=== PATIENT | male | born 1975 | race Caucasian/White ===

== ENCOUNTER 2021-04-22 02:52 | Emergency (ER) | payer SELFPAY ==
[2021-04-22] MEDS ORDERED: LEVETIRACETAM 500 MG/5 ML VIAL IV ONE (03:52)
[2021-04-22] MEDS ORDERED: NA CHLORIDE 0.9% 500 ML ONE (03:52)
[2021-04-22] MEDS ORDERED: ONDANSETRON 4 MG/2 ML VIAL ONE (03:52)
[2021-04-22] MEDS ORDERED: NA CHLORIDE 0.9% 100 ML ONE (03:52)
[2021-04-22] MEDS ORDERED: FENTANYL CITR 100 MCG/2 ML ONE (04:10)
[2021-04-22] MEDS ORDERED: dexAMETHasone 10 MG/ML VIAL ONE (04:44)
[2021-04-22] MEDS ORDERED: MORPHINE 2 MG/ML SYR ONE (04:44)
[2021-04-22 06:27] LABS: Albumin 4.3 g/dL (3.4-5.0); Bilirubin Total 0.9 mg/dL (0.2-1.0); Potassium 3.8 mmol/L (3.5-5.1); Protein, Total 9.5 g/dL (6.4-8.2); Protime INR 1.06
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
[2021-04-22 06:39] VITALS: BP 154/97; TEMP 97.8; O2SAT 99
[2021-04-22 06:47] LABS: Basophils % 0.4 % (0-1.3); Hematocrit 48.9 % (39.6-49.0); Lymphocytes % 14.5 % (15.3-44.8); MPV 9.2 fL (7.6-11.3); RBC Red Blood Cell Count 5.17 M/uL (4.33-5.43)
--- NOTE | 2021-05-01 09:52 | RAD REPORT ---
EXAM: CT Head COMPARISON: CT head April 20 report only INDICATION: For headache pain TECHNIQUE: Axial images were obtained from skull base to vertex without intravenous contrast. Images viewed on bone and brain windows. Multiplanar reformats were performed. Automated exposure control was utilized on this examination as a dose lowering technique. FINDINGS: Brain parenchyma, ventricles, dura, meninges, and extra-axial spaces: Cortical contusions are present in the lateral inferior right frontal lobe and lateral right temporal lobe. A small amount of subarachnoid hemorrhage is present at these locations. The right hemispheric subdural hematoma measures up to 2 mm in thickness. Vascular structures: No hyperdense arteries or veins. Calvarium, mastoid air cells, paranasal sinuses and orbits: Stable nondisplaced left occipital skull fracture. The mastoid air cells are clear. Visualized paranasal sinuses are unremarkable. Orbital structures are unremarkable. EXAM: CT Cervical Spine COMPARISON: None. INDICATION: For headache pain TECHNIQUE: Axial CT images were obtained through the entire cervical spine without contrast. Sagittal and coronal reconstructions are provided. Automated exposure control was utilized on this examination as a dose lowering technique. FINDINGS: Vertebrae: Vertebral statures and alignment are normal. No acute fracture, dislocation or destructive osseous process is present. Spinal canal, foramina, and facet joints: No significant spinal canal or foraminal stenoses. No significant facet arthropathy. Paraspinous soft-tissues: Normal. Thyroid: Normal. Other Findings: None. HEAD IMPRESSION: Cortical contusions are present in the inferolateral right frontal lobe and lateral right temporal lobe with a small amount of subarachnoid hemorrhage and a small right hemispheric subdural hematoma. Comparison imaging is not available. Small nondisplaced left occipital fracture. C-SPINE IMPRESSION: No acute findings of the cervical spine. Electronically signed by: Thierry Yeung MD 04/22/2021 4:44 AM CDT Due to temporary technical issues with the PACS/Fluency reporting system, reports are being signed by the in house radiologist without review as a courtesy to ensure prompt reporting. The interpreting radiologist is fully responsible for the content of the report.
== END 2021-04-22 05:11 | disposition short-term general hospital (02) ==
LOC: ER 02:52
DX: S06.5X0A Traumatic subdural hemorrhage without loss of consciousness, initial encounter (principal); S02.91XA Unspecified fracture of skull, initial encounter for closed fracture; R00.1 Bradycardia, unspecified; R11.10 Vomiting, unspecified; Y09 Assault by unspecified means
CPT/HCPCS: 36415; 70450; 72125; 80053; 85025; 85610; 93005; 96365; 96375; 99284; J1100; J1953; J2270; J2405; J3010; J7040